=== PATIENT | female | born 1950 | race Caucasian/White ===

== ENCOUNTER 2016-08-09 01:50 | Emergency (ER) | payer MEDICARE, OTHER ==
[~2016-08-09] VITALS: Ht 157.5 cm; Wt 86.2 kg
[2016-08-09] MEDS ORDERED: GABAPENTIN300 MG ORAL (02:05)
[2016-08-09] MEDS ORDERED: IBUPROFEN600 MG ORAL (02:05)
[2016-08-09 02:15] VITALS: BP 144/89
[2016-08-09] MEDS ORDERED: Norco 5mg/325mg tab ORAL ONE (02:45)
[2016-08-09 02:56] LABS: APPEARANCE,URINE CLEAR; KETONES,URINE NEGATIVE (NEGATIVE); NITRITE,URINE NEGATIVE (NEGATIVE); PH,URINE 7 (4.5-8.0); PROTEIN,URINE NEGATIVE (NEGATIVE); UROBILINOGEN,URINE NORMAL MG/DL (0.0-1.0)
[2016-08-09 03:10] LABS: LEUKOCYTE ESTERASE ,URINE NEGATIVE (NEGATIVE)
[2016-08-09] MEDS ORDERED: NORCO 5-325 TA1 EACH ORAL (03:18)
[2016-08-09 03:35] VITALS: BP 141/85
--- NOTE | 2016-08-09 11:41 | Diagnostic Imaging Report ---
Indication: Back pain Comparison: None Findings: 3 views of the lumbar spine were obtained. Multilevel narrowing of intervertebral disks and associated endplate and Facet osteophytes are present. No malalignment identified. Aorta is mildly calcified. No acute fracture definitely seen. Impression: Mild spondylosis. No acute injury appreciated.
--- NOTE | 2016-08-12 09:01 | Emergency Room Report ---
History of Present Illness General Chief Complaint: General Complaint Source: Patient Present Illness HPI Patient is a 65-year-old female who presented after increased of low back pain. Patient had gradual onset of symptoms. Patient had no recent fever. She had not been vomiting. Patient denied any recent trauma. Patient stated that she been having increased sharp pain. Allergies: Coded Allergies: No Known Allergies (Unverified , 08/09/16) Patient History Last Menstrual Period: none Reviewed Nursing Documentation: PMH: Agreed, PSxH: Agreed Nursing Documentation-PMH Hx Cardiac Problems: Yes - fast heart rate Review of Systems All Other Systems: negative except mentioned in HPI Physical Exam Vital Signs Date Time Temp Pulse Resp B/P Pulse Ox O2 Delivery O2 Flow Rate FiO2 08/09/16 01:57 98.1 71 18 144/89 95 Room Air Sp02 EP Interpretation: reviewed, normal General Appearance: normal inspection, well appearing, no apparent distress, alert, GCS 15 Head: atraumatic ENT: normal ENT inspection, hearing grossly normal, normal voice Neck: normal inspection, full range of motion, supple, no bony tend Respiratory: normal inspection, lungs clear, normal breath sounds, no respiratory distress, no retraction, no wheezing Cardiovascular #1: regular rate, rhythm, no edema Gastrointestinal: normal inspection, normal bowel sounds, non tender, soft, no guarding, no hernia Genitourinary: no CVA tenderness Musculoskeletal: normal inspection, back normal, normal range of motion Neurologic: normal inspection, alert, oriented x3, responsive, 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 Because of complexity of patient's case laboratory testing and imaging studies were ordered. The patient was given oral pain medications. Urinalysis showed no evidence of infection. The patient is advised to follow up with primary care doctor in 1-2 days. Patient is advised to return if any worsening condition or if any changes in status that are concerning. Labs Test 08/09/16 02:40 Urine Color Pale yellow Urine Appearance Clear Urine pH 7 (4.5-8.0) Urine Specific [place] 1.015 (1.005-1.035) Urine Protein Negative (NEGATIVE) Urine Glucose (UA) Negative (NEGATIVE) Urine Ketones Negative (NEGATIVE) Urine Occult Blood Negative (NEGATIVE) Urine Nitrite Negative (NEGATIVE) Urine Bilirubin Negative (NEGATIVE) Urine Urobilinogen Normal MG/DL (0.0-1.0) Urine Leukocyte Esterase Negative (NEGATIVE) Last Vital Signs Date Time Temp Pulse Resp B/P Pulse Ox O2 Delivery O2 Flow Rate FiO2 08/09/16 03:35 98.4 73 18 141/85 95 Room Air Status: improved Disposition: HOME, SELF-CARE Condition: Stable Scripts Hydrocodone Bit/Acetaminophen 5-325* (NORCO 5-325*) 1 Each Tablet 1 TAB ORAL Q6H Y for For Pain, #10 TAB 0 Refills Prov: Bobby Willis 08/09/16 Patient Instructions: Pain Medicine Instructions, [id number] Bobby Willis Aug 12, 2016 09:01
== END 2016-08-09 03:36 | disposition home or self-care (01) ==
LOC: EMR 02:15
DX: M54.5 Low back pain (principal)
CPT/HCPCS: 72110; 81003; 99283